=== PATIENT | male | born 1960 | race Caucasian/White ===

== ENCOUNTER 2016-09-27 14:10 | Emergency (ER) | payer SELFPAY ==
[2016-09-27] MEDS ORDERED: Nitroglycerin 0.4 MG Tab.SL SL ONE (14:29)
[2016-09-27] MEDS ORDERED: Sodium Chloride 0.9% 2.5 ML Syringe FLUSH PRN (14:29)
[2016-09-27] MEDS ORDERED: Famotidine 20 MG/2 ML SDV IVPUSH ONE (14:29)
[2016-09-27] MEDS ORDERED: Aspirin 81 MG Tab.Chew PO ONE (14:29)
[2016-09-27] MEDS ORDERED: Ketorolac 30 MG/ML SDV IVPUSH ONE (14:29)
[2016-09-27] MEDS ORDERED: Sodium Chloride 0.9% 10 ML Syringe FLUSH PRN (14:29)
[2016-09-27] MEDS ORDERED: Alum Hydrox/Mag Hydrox/Simeth 15 ML, Metoclopramide 5 MG, Lidocaine 2% 5 ML PO ONE ×3 (14:29)
[2016-09-27 14:52] VITALS: BP 124/85
--- NOTE | 2016-09-27 14:52 | EDM.PDOC ---
ED HPI GENERAL MEDICAL PROBLEM - General Chief Complaint: General Stated Complaint: SHORTNESS OF BREATH Time Seen by Provider: 09/27/16 14:25 Source of Information: Reports: Patient History Limitations: Reports: No Limitations - History of Present Illness INITIAL COMMENTS - FREE TEXT/NARRATIVE: History of present illness: [55-year-old male comes in complaining of feeling chest pain. Patient acknowledges that he has been binge drinking and that that could be part of his problem but he is not certain. Patient indicates he was quite frightened and he felt that he needed to be seen immediately or in fact he would possibly .] Review of systems: As per history of present illness and below otherwise all systems reviewed and negative. Past medical history: As per history of present illness and as reviewed below otherwise noncontributory. Surgical history: As per history of present illness and as reviewed below otherwise noncontributory. Social history: No reported history of drug that is and it heavy drinker and admits to binge drinking Family history: As per history of present illness and as reviewed below otherwise noncontributory. Physical exam: HEENT: Atraumatic, normocephalic, pupils reactive, negative for conjunctival pallor or scleral icterus, mucous membranes moist, throat clear, neck supple, nontender, trachea midline. Lungs: Clear to auscultation, breath sounds equal bilaterally, chest nontender. Heart: S1S2, regular, negative for clicks, rubs, or JVD. Abdomen: Soft, nondistended, nontender. Negative for masses or hepatosplenomegaly. Negative for costovertebral tenderness. Pelvis: Stable nontender. Genitourinary: Deferred. Rectal: Deferred. Extremities: Atraumatic, negative for cords or calf pain. Neurovascular unremarkable. Neuro: Awake, alert, oriented. Cranial nerves II through XII unremarkable. Cerebellum unremarkable. Motor and sensory unremarkable throughout. Exam nonfocal. Patient indicated that he has tried withdrawn before from alcohol he did went successfully he knows that he had seizures but he came out the other side okay he talked to a doctor and the doctor had told him to wean himself off slowly he would like to go home and do that. He did acknowledge that he was at the paranoid state now that he thinks it'll be better when he weans himself slowly Patient is clear he still intoxicated and states that Diagnostics: [Cardiac workup] Therapeutics: [IV fluid, Toradol, aspirin,] Impression: [Alcohol abuse] Plan: [Refer patient to outpatient rehabilitation per his request] Definitive disposition and diagnosis as appropriate pending reevaluation and review of above. left arm Pain Score (Numeric/FACES): 7 - Related Data Allergies Allergy/AdvReac Type Severity Reaction Status Date / Time No Known Allergies Allergy Verified 09/27/16 14:18 Home Meds: Home Meds . [No Known Home Meds] 09/27/16 [History] Past Medical History Cardiovascular History: Reports: Hypertension Musculoskeletal History: Reports: Back Pain, Chronic - Past Surgical History GI Surgical History: Reports: Other (See Below) Other GI Surgeries/Procedures: Pancreatitis Musculoskeletal Surgical History: Reports: Other (See Below) Other Musculoskeletal Surgeries/Procedures:: foot pain. Social & Family History - Family History Family Medical History: Noncontributory - Tobacco Use Smoking Status *Q: Current Every Day Smoker Years of Tobacco use: 50 Packs/Tins Daily: 1 - Alcohol Use Days Per Week of Alcohol Use: 7 Number of Drinks Per Day: 38 Total Drinks Per Week: 266 - Recreational Drug Use Recreational Drug Use: No ED ROS GENERAL - Review of Systems Review Of Systems: See Below (See history of present illness) ED EXAM, GENERAL - Physical Exam Exam: See Below (See history of present illness) Course - Vital Signs Last Recorded V/S: Last Vital Signs Temp 36.9 C 09/27/16 14:18 Pulse 107 H 09/27/16 14:18 Resp 18 09/27/16 14:18 BP 133/87 09/27/16 14:18 Pulse Ox 97 09/27/16 14:18 - Orders/Labs/Meds Orders: Active Orders 24 hr Category Date Time Status Cardiac Monitoring [RC] . DIRECTED Care 09/27/16 14:29 Ordered EKG Documentation Completion [RC] STAT Care 09/27/16 14:29 Ordered Chest 1V Frontal [CR] Stat Exams 09/27/16 14:29 Ordered AMYLASE [CHEM] Stat Lab 09/27/16 14:29 Ordered CBC WITH AUTO DIFF [HEME] Stat Lab 09/27/16 14:29 Ordered COMPREHENSIVE METABOLIC PN,CMP [CHEM] Stat Lab 09/27/16 14:29 Ordered LIPASE [CHEM] Stat Lab 09/27/16 14:29 Ordered TROPONIN I [CHEM] Stat Lab 09/27/16 14:29 Ordered Sodium Chloride 0.9% [Saline Flush] Med 09/27/16 14:29 Ordered 10 ml FLUSH ASDIRECTED PRN Sodium Chloride 0.9% [Saline Flush] Med 09/27/16 14:29 Ordered 2.5 ml FLUSH ASDIRECTED PRN Saline Lock Insert [OM.PC] Stat Oth 09/27/16 14:29 Ordered Medication Orders Sodium Chloride (Saline Flush) 10 ml FLUSH ASDIRECTED PRN PRN Reason: Keep Vein Open Sodium Chloride (Saline Flush) 2.5 ml FLUSH ASDIRECTED PRN PRN Reason: Keep Vein Open Meds: Medications Generic Name Dose Route Start Last Admin Trade Name Freq PRN Reason Stop Dose Admin Sodium Chloride 10 ml 09/27/16 14:29 Saline Flush FLUSH ASDIRECTED PRN Keep Vein Open Sodium Chloride 2.5 ml 09/27/16 14:29 Saline Flush FLUSH ASDIRECTED PRN Keep Vein Open Discontinued Medications Generic Name Dose Route Start Last Admin Trade Name Freq PRN Reason Stop Dose Admin Aspirin 324 mg 09/27/16 14:29 Aspirin PO 09/27/16 14:30 ONETIME ONE Al Hydroxide/Mg Hydroxide 15 0 ml 09/27/16 14:29 ml/ Metoclopramide HCl 5 mg/ PO 09/27/16 14:30 Lidocaine HCl 5 ml ONETIME ONE Famotidine 20 mg 09/27/16 14:29 Pepcid IVPUSH 09/27/16 14:30 ONETIME ONE Ketorolac Tromethamine 30 mg 09/27/16 14:29 Toradol IVPUSH 09/27/16 14:30 ONETIME ONE Nitroglycerin 0.4 mg 09/27/16 14:29 Nitrostat SL 09/27/16 14:30 ONETIME ONE Departure - Departure Time of Disposition: 15:18 Disposition: Home, Self-Care 01 Condition: Good Clinical Impression: Alcohol abuse - Discharge Information Forms: ED Department Discharge Additional Instructions: The following information is given to patients seen in the emergency department who are being discharged to home. This information is to outline your options for follow-up care. We provide all patients seen in our emergency department with a follow-up referral. The need for follow-up, as well as the timing and circumstances, are variable depending upon the specifics of your emergency department visit. If you don't have a primary care physician on staff, we will provide you with a referral. We always advise you to contact your personal physician following an emergency department visit to inform them of the circumstance of the visit and for follow-up with them and/or the need for any referrals to a consulting specialist. The emergency department will also refer you to a specialist when appropriate. This referral assures that you have the opportunity for follow-up care with a specialist. All of these measure are taken in an effort to provide you with optimal care, which includes your follow-up. Under all circumstances we always encourage you to contact your private physician who remains a resource for coordinating your care. When calling for follow-up care, please make the office aware that this follow-up is from your recent emergency room visit. If for any reason you are refused follow-up, please contact the [facility] Emergency Department at and asked to speak to the emergency department charge nurse. Follow-up in rehabilitation as discussed Follow-up with her primary care provider Return to ER as needed as discussed Information for [facility] services provided as they do the local outpatient rehabilitation which patient requested information for [facility] [address] [place] [address] - My Orders Last 24 Hours: My Active Orders 09/27/16 14:29 Cardiac Monitoring [RC] . DIRECTED EKG Documentation Completion [RC] STAT Chest 1V Frontal [CR] Stat AMYLASE [CHEM] Stat CBC WITH AUTO DIFF [HEME] Stat COMPREHENSIVE METABOLIC PN,CMP [CHEM] Stat LIPASE [CHEM] Stat TROPONIN I [CHEM] Stat Sodium Chloride 0.9% [Saline Flush] 10 ml FLUSH ASDIRECTED PRN Sodium Chloride 0.9% [Saline Flush] 2.5 ml FLUSH ASDIRECTED PRN Saline Lock Insert [OM.PC] Stat - Assessment/Plan Last 24 Hours: My Active Orders 09/27/16 14:29 Cardiac Monitoring [RC] . DIRECTED EKG Documentation Completion [RC] STAT Chest 1V Frontal [CR] Stat AMYLASE [CHEM] Stat CBC WITH AUTO DIFF [HEME] Stat COMPREHENSIVE METABOLIC PN,CMP [CHEM] Stat LIPASE [CHEM] Stat TROPONIN I [CHEM] Stat Sodium Chloride 0.9% [Saline Flush] 10 ml FLUSH ASDIRECTED PRN Sodium Chloride 0.9% [Saline Flush] 2.5 ml FLUSH ASDIRECTED PRN Saline Lock Insert [OM.PC] Stat
[2016-09-27 15:31] LABS: CHLORIDE,CL 101 mmol/L (98-110); SODIUM,NA 138 mmol/L (136-146)
== END 2016-09-27 15:28 | disposition home or self-care (01) ==
LOC: MW.ED 14:10
DX: F10.10 Alcohol abuse, uncomplicated (principal); I10 Essential (primary) hypertension; F17.210 Nicotine dependence, cigarettes, uncomplicated
CPT/HCPCS: 36415; 80053; 82150; 83690; 84484; 85025; 93005; 96374; 96375; 99284; A9270; J1885; 99283

== ENCOUNTER 2016-09-28 12:22 | Emergency (ER) | payer SELFPAY ==
--- NOTE | 2016-09-28 12:41 | EDM.PDOC ---
ED HPI GENERAL MEDICAL PROBLEM - General Chief Complaint: Abdominal Pain Stated Complaint: CHEST PAIN Time Seen by Provider: 09/28/16 12:25 Source of Information: Reports: Patient History Limitations: Reports: No Limitations - History of Present Illness INITIAL COMMENTS - FREE TEXT/NARRATIVE: History of present illness: [55 year-old male presents to consecutive days in the ER intoxicated and making a male strum of complaints about various physiological issues that are all predicated on being intoxicated. He talks about being lightheaded, he talks about being nauseous, he talks about having chest pain and sweats. Patient indicates that he is trying to wean himself but yet with each visit he has come and quite intoxicated and he acknowledges a very recent binge to help with his symptoms.] Review of systems: As per history of present illness and below otherwise all systems reviewed and negative. Past medical history: As per history of present illness and as reviewed below otherwise noncontributory. Surgical history: As per history of present illness and as reviewed below otherwise noncontributory. Social history: No reported history of drug or alcohol abuse. Family history: As per history of present illness and as reviewed below otherwise noncontributory. Physical exam: HEENT: Atraumatic, normocephalic, pupils reactive, negative for conjunctival pallor or scleral icterus, mucous membranes moist, throat clear, neck supple, nontender, trachea midline. Lungs: Clear to auscultation, breath sounds equal bilaterally, chest nontender. Heart: S1S2, regular, negative for clicks, rubs, or JVD. Abdomen: Soft, nondistended, nontender. Negative for masses or hepatosplenomegaly. Negative for costovertebral tenderness. Pelvis: Stable nontender. Genitourinary: Deferred. Rectal: Deferred. Extremities: Atraumatic, negative for cords or calf pain. Neurovascular unremarkable. Neuro: Awake, alert, oriented. Intoxicated and I'm able to follow basic instructions for complete neuro exam. Safer being clearly intoxicated patient assessment is benign without evidence of hypoxia, chest pain, nausea and/or vomiting. Diagnostics: [] Therapeutics: [] Impression: [Alcohol abuse] Plan: [Discharge to home] Definitive disposition and diagnosis as appropriate pending reevaluation and review of above. epigastric Pain Score (Numeric/FACES): 6 right foot Pain Score (Numeric/FACES): 6 - Related Data Allergies Allergy/AdvReac Type Severity Reaction Status Date / Time No Known Allergies Allergy Verified 09/28/16 12:25 Home Meds: Home Meds . [No Known Home Meds] 09/27/16 [History] Past Medical History - Past Health History Medical/Surgical History: Denies Medical/Surgical History Cardiovascular History: Reports: Hypertension Musculoskeletal History: Reports: Back Pain, Chronic Psychiatric History: Reports: Anxiety, Depression - Past Surgical History GI Surgical History: Reports: Other (See Below) Other GI Surgeries/Procedures: Pancreatitis Musculoskeletal Surgical History: Reports: Other (See Below) Other Musculoskeletal Surgeries/Procedures:: foot pain. Social & Family History - Family History Family Medical History: Noncontributory - Tobacco Use Smoking Status *Q: Current Every Day Smoker Years of Tobacco use: 15 Packs/Tins Daily: 1 - Alcohol Use Days Per Week of Alcohol Use: 7 Number of Drinks Per Day: 38 Total Drinks Per Week: 266 - Recreational Drug Use Recreational Drug Use: No ED ROS GENERAL - Review of Systems Review Of Systems: See Below (See history of present illness) ED EXAM, GENERAL - Physical Exam Exam: See Below (CHPI) Course - Vital Signs Last Recorded V/S: Last Vital Signs Temp 36.6 C 09/28/16 12:25 Pulse 92 09/28/16 12:49 Resp 16 09/28/16 12:49 BP 138/77 09/28/16 12:49 Pulse Ox 97 09/28/16 12:49 Departure - Departure Time of Disposition: 12:59 Disposition: Home, Self-Care 01 Condition: Good Clinical Impression: Alcohol abuse - Discharge Information Forms: ED Department Discharge Additional Instructions: The following information is given to patients seen in the emergency department who are being discharged to home. This information is to outline your options for follow-up care. We provide all patients seen in our emergency department with a follow-up referral. The need for follow-up, as well as the timing and circumstances, are variable depending upon the specifics of your emergency department visit. If you don't have a primary care physician on staff, we will provide you with a referral. We always advise you to contact your personal physician following an emergency department visit to inform them of the circumstance of the visit and for follow-up with them and/or the need for any referrals to a consulting specialist. The emergency department will also refer you to a specialist when appropriate. This referral assures that you have the opportunity for follow-up care with a specialist. All of these measure are taken in an effort to provide you with optimal care, which includes your follow-up. Under all circumstances we always encourage you to contact your private physician who remains a resource for coordinating your care. When calling for follow-up care, please make the office aware that this follow-up is from your recent emergency room visit. If for any reason you are refused follow-up, please contact the [facility] Emergency Department at and asked to speak to the emergency department charge nurse. Follow-up with your primary care provider to discuss options for discontinuing alcohol consumption Return to ED in cases of emergency as discussed Quit drinking
== END 2016-09-28 13:08 | disposition home or self-care (01) ==
LOC: MW.ED 12:22
CPT/HCPCS: 99282; 99284

== ENCOUNTER 2016-09-28 14:31 | Emergency (ER) | payer SELFPAY ==
--- NOTE | 2016-09-28 14:46 | EDM.PDOC ---
ED HPI GENERAL MEDICAL PROBLEM - General Chief Complaint: General Stated Complaint: WEAKNESS Time Seen by Provider: 09/28/16 14:34 - History of Present Illness INITIAL COMMENTS - FREE TEXT/NARRATIVE: HISTORY AND PHYSICAL: History of present illness: Patient 55-year-old white male who presents with a concern of status post fall he denies any headache neck pain or injury chest or abdominal pain or trauma states he was simply mechanical fall he does have history of alcohol abuse. Review of systems: As per history of present illness and below otherwise all systems reviewed and negative. Past medical history: As per history of present illness and as reviewed below otherwise noncontributory. Surgical history: As per history of present illness and as reviewed below otherwise noncontributory. Social history: No reported history of drug or alcohol abuse. Family history: As per history of present illness and as reviewed below otherwise noncontributory. Physical exam: HEENT: Atraumatic, normocephalic, pupils reactive, negative for conjunctival pallor or scleral icterus, mucous membranes moist, throat clear, neck supple, nontender, trachea midline. Lungs: Clear to auscultation, breath sounds equal bilaterally, chest nontender. Heart: S1S2, regular, negative for clicks, rubs, or JVD. Abdomen: Soft, nondistended, nontender. Negative for masses or hepatosplenomegaly. Negative for costovertebral tenderness. Pelvis: Stable nontender. Genitourinary: Deferred. Rectal: Deferred. Extremities: Atraumatic, negative for cords or calf pain. Neurovascular unremarkable. Neuro: Awake, alert, oriented. Cranial nerves II through XII unremarkable. Cerebellum unremarkable. Motor and sensory unremarkable throughout. Exam nonfocal. Diagnostics: None Therapeutics: None Impression: #1 history of alcohol abuse #2 history of fall #3 medical screening exam Definitive disposition and diagnosis as appropriate pending reevaluation and review of above. - Related Data Allergies Allergy/AdvReac Type Severity Reaction Status Date / Time No Known Allergies Allergy Verified 09/28/16 14:33 Home Meds: Home Meds . [No Known Home Meds] 09/27/16 [History] Past Medical History - Past Health History Medical/Surgical History: Denies Medical/Surgical History Cardiovascular History: Reports: Hypertension Musculoskeletal History: Reports: Back Pain, Chronic Psychiatric History: Reports: Anxiety, Depression - Past Surgical History GI Surgical History: Reports: Other (See Below) Other GI Surgeries/Procedures: Pancreatitis Musculoskeletal Surgical History: Reports: Other (See Below) Other Musculoskeletal Surgeries/Procedures:: foot pain. Social & Family History - Family History Family Medical History: Noncontributory - Tobacco Use Smoking Status *Q: Current Every Day Smoker Years of Tobacco use: 15 Packs/Tins Daily: 1 - Alcohol Use Days Per Week of Alcohol Use: 7 Number of Drinks Per Day: 38 Total Drinks Per Week: 266 - Recreational Drug Use Recreational Drug Use: No ED ROS GENERAL - Review of Systems Review Of Systems: ROS reveals no pertinent complaints other than HPI. ED EXAM, GENERAL - Physical Exam Exam: See Below (See dictation) Departure - Departure Time of Disposition: 14:45 Disposition: Home, Self-Care 01 Condition: Good Clinical Impression: Encounter for medical screening examination - Discharge Information Forms: ED Department Discharge Additional Instructions: The following information is given to patients seen in the emergency department who are being discharged to home. This information is to outline your options for follow-up care. We provide all patients seen in our emergency department with a follow-up referral. The need for follow-up, as well as the timing and circumstances, are variable depending upon the specifics of your emergency department visit. If you don't have a primary care physician on staff, we will provide you with a referral. We always advise you to contact your personal physician following an emergency department visit to inform them of the circumstance of the visit and for follow-up with them and/or the need for any referrals to a consulting specialist. The emergency department will also refer you to a specialist when appropriate. This referral assures that you have the opportunity for followup care with a specialist. All of these measure are taken in an effort to provide you with optimal care, which includes your followup. Under all circumstances we always encourage you to contact your private physician who remains a resource for coordinating your care. When calling for followup care, please make the office aware that this follow-up is from your recent emergency room visit. If for any reason you are refused follow-up, please contact the [facility] emergency department at and asked to speak to the emergency department charge nurse. Follow-up primary medical doctor 1-2 days return as needed as discussed
== END 2016-09-28 14:55 | disposition home or self-care (01) ==
LOC: MW.ED 14:31
CPT/HCPCS: 99282

== ENCOUNTER 2016-09-30 20:28 | Emergency (ER) | payer SELFPAY ==
[2016-09-30] MEDS ORDERED: Ondansetron 4 MG Tab.DIS PO ONE (21:00)
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
[2016-09-30 21:42] VITALS: BP 150/110
== END 2016-09-30 21:32 | disposition home or self-care (01) ==
LOC: MW.ED 20:28
DX: F32.9 Major depressive disorder, single episode, unspecified (principal); F10.10 Alcohol abuse, uncomplicated; F41.9 Anxiety disorder, unspecified; I10 Essential (primary) hypertension; F17.210 Nicotine dependence, cigarettes, uncomplicated; Z90.49 Acquired absence of other specified parts of digestive tract; Z98.890 Other specified postprocedural states
CPT/HCPCS: 82962; 99285; A9270; 99283

== ENCOUNTER 2016-10-02 11:08 | Emergency (ER) | payer SELFPAY ==
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
[2016-10-02 12:06] LABS: CHLORIDE,CL 102 mmol/L (98-110); SODIUM,NA 138 mmol/L (136-146)
[2016-10-02 12:16] LABS: ACETAMINOPHEN < 3.0 ug/mL
[2016-10-02] MEDS ORDERED: LORazepam 2 MG/ML MDV ONE (12:17)
[2016-10-02] MEDS ORDERED: LORazepam 1 MG Tab ONE (12:47)
[2016-10-02] MEDS ORDERED: LORazepam 1 MG Tab PO ONE (12:49)
[2016-10-02] MEDS ORDERED: LORazepam 2 MG/ML MDV IM ONE (12:49)
[2016-10-02] MEDS ORDERED: Nicotine 21 MG/24 Hr Patch TRDERM ONE (13:29)
[2016-10-02 14:35] VITALS: BP 115/70
== END 2016-10-02 13:53 ==
LOC: MW.ED 11:08
DX: F32.9 Major depressive disorder, single episode, unspecified (principal); F10.10 Alcohol abuse, uncomplicated; R45.851 Suicidal ideations; I10 Essential (primary) hypertension; E10.9 Type 1 diabetes mellitus without complications; F17.210 Nicotine dependence, cigarettes, uncomplicated; Z90.49 Acquired absence of other specified parts of digestive tract; Z98.890 Other specified postprocedural states
CPT/HCPCS: 36415; 80053; 80305; 81001; 83735; 84443; 84481; 85025; 93005; 96372; 99285; A9270; G0480; J2060